=== PATIENT | female | born 2000 | race Caucasian/White ===

== ENCOUNTER 2021-04-16 16:24 | Emergency (ER) | payer OTHER ==
[~2021-04-16] VITALS: Ht 154.9 cm; Wt 72.6 kg
[2021-04-16 16:25] VITALS: BP 139/68
[2021-04-16] MEDS ORDERED: D-ME1POW16 PO (18:29)
== END 2021-04-16 18:43 | disposition home or self-care (01) ==
LOC: EDH 16:24
DX: B34.9 Viral infection, unspecified (principal); Z20.822 Contact with and (suspected) exposure to COVID-19
CPT/HCPCS: 87635; 87804; C9803